=== PATIENT | female | born 1955 | race Two or more races ===

== ENCOUNTER 2017-10-20 08:40 | Outpatient (CLI) | payer OTHER | END 2017-10-20 08:52 | disposition home or self-care (01) | LOC: SONOGRAMA 08:40 → MAMO-SONO 08:45 → SONOGRAMA 08:52 | DX: Z80.0 Family history of malignant neoplasm of digestive organs (principal); C50.412 Malignant neoplasm of upper-outer quadrant of left female breast; D05.12 Intraductal carcinoma in situ of left breast; Z85.3 Personal history of malignant neoplasm of breast; Z92.21 Personal history of antineoplastic chemotherapy; D51.8 Other vitamin B12 deficiency anemias; E55.9 Vitamin D deficiency, unspecified; Z86.010 Personal history of colon polyps; E78.2 Mixed hyperlipidemia; K57.30 Diverticulosis of large intestine without perforation or abscess without bleeding; K21.0 Gastro-esophageal reflux disease with esophagitis ==

== ENCOUNTER 2017-10-20 09:55 | Outpatient (CLI) | payer OTHER | END 2017-10-20 10:07 | disposition home or self-care (01) | LOC: RAD 501 09:55 | DX: C50.412 Malignant neoplasm of upper-outer quadrant of left female breast (principal); Z80.0 Family history of malignant neoplasm of digestive organs; D05.12 Intraductal carcinoma in situ of left breast; Z85.3 Personal history of malignant neoplasm of breast; Z92.21 Personal history of antineoplastic chemotherapy; D51.8 Other vitamin B12 deficiency anemias; E55.9 Vitamin D deficiency, unspecified; Z86.010 Personal history of colon polyps; E78.2 Mixed hyperlipidemia; K57.30 Diverticulosis of large intestine without perforation or abscess without bleeding; K21.0 Gastro-esophageal reflux disease with esophagitis ==

== ENCOUNTER 2018-03-15 09:50 | Outpatient (CLI) | payer OTHER | END 2018-03-15 10:05 | disposition home or self-care (01) | LOC: MAMO-SONO 09:50 | DX: Z80.0 Family history of malignant neoplasm of digestive organs (principal); C50.412 Malignant neoplasm of upper-outer quadrant of left female breast; D05.12 Intraductal carcinoma in situ of left breast; Z85.3 Personal history of malignant neoplasm of breast; Z92.21 Personal history of antineoplastic chemotherapy; D51.8 Other vitamin B12 deficiency anemias; E55.9 Vitamin D deficiency, unspecified; Z86.010 Personal history of colon polyps; E78.2 Mixed hyperlipidemia; K57.30 Diverticulosis of large intestine without perforation or abscess without bleeding; K21.0 Gastro-esophageal reflux disease with esophagitis ==